=== PATIENT | male | born 1955 | race African-American/Black ===

== ENCOUNTER 2017-11-24 09:07 | Emergency (ER) | payer MEDICAID ==
[~2017-11-24] VITALS: Ht 172.7 cm; Wt 70.0 kg
[2017-11-24] MEDS ORDERED: INSULIN (09:11)
[2017-11-24] MEDS ORDERED: GABA-529 PO (09:11)
[2017-11-24] MEDS ORDERED: PROT20 PO (09:11)
[2017-11-24] MEDS ORDERED: ONDANSETRON HCL 4MG/2ML VIAL IV STA (09:19)
[2017-11-24] MEDS ORDERED: SODIUM CHLORIDE 0.9% 1,000 ML IV ONE (09:19)
[2017-11-24] MEDS ORDERED: MORPHINE SULFATE 4 MG/ML CPJ (NOT FOR IM USE) IV STA (09:19)
[2017-11-24] MEDS ORDERED: FAMOTIDINE 20MG/2ML VIAL IV ONE (09:30)
[2017-11-24 09:35] LABS: BASOPHILS % 0.7 % (0.0-2.0); EOSINOPHILS % 3.5 % (0.0-5.0); HEMATOCRIT. 42.7 % (42.0-52.0); HEMOGLOBIN. 14.5 g/dL (14.0-18.0); LYMPHOCYTES % 33.1 % (20.0-50.0); MEAN CORPUSCULAR HEMOGLOBIN 31.3 pg (28.0-32.0); MEAN CORPUSCULAR VOLUME 92.5 fL (80.0-94.0); MEAN PLATELET VOLUME 7.7 fl (7.4-10.4); MONOCYTES % 6.1 % (2.0-8.0); NEUTROPHILS % 56.6 % (40.0-76.0); PLATELET 244 x1000/uL (130-400); RED BLOOD CELL COUNT 4.62 mill/uL (4.7-6.1)
[2017-11-24 09:40] LABS: CHLORIDE 108 mEq/L (98-107)
[2017-11-24 09:42] LABS: PROTHROMBIN TIME 10.8 sec (9.4-11.6)
[2017-11-24 10:46] VITALS: BP 170/90
== END 2017-11-24 11:25 | disposition home or self-care (01) ==
LOC: ER 10:00
DX: R10.84 Generalized abdominal pain (principal); E11.9 Type 2 diabetes mellitus without complications; Z79.4 Long term (current) use of insulin
CPT/HCPCS: 36415; 74176; 80053; 83690; 85025; 85610; 96361; 96374; 96375; 99285; J2270; J2405; J3490; J7030; Z7610